=== PATIENT | female | born 1985 | race Caucasian/White ===

== ENCOUNTER 2018-06-22 16:46 | Inpatient (IN) | payer OTHER ==
[2018-06-22] MEDS ORDERED: Butorphanol Tartrate 1 MG/ML VIAL SLOW IVP PRN (17:03)
[2018-06-22] MEDS ORDERED: Ondansetron HCl/PF 4 MG/2 ML Vial IVP PRN (17:03)
[2018-06-22] MEDS ORDERED: Promethazine HCl 25 MG/ML VIAL IM PRN (17:03)
[2018-06-22] MEDS ORDERED: Docusate 100 MG CAP PO PRN (17:03)
[2018-06-22] MEDS ORDERED: Zolpidem Tartrate 5 MG TAB PO PRN (17:03)
[2018-06-22] MEDS ORDERED: Magnesium 2 GM/50 ML 2 GM in Premix Bag 1 BAG IVPB SCH (17:15)
[2018-06-22] MEDS ORDERED: Magnesium Sulfate 20 gm/500 ml 20 GM/500 ML BAG ONE (17:29)
[2018-06-22 17:38] LABS: Hemoglobin 11.2 g/dL (12.0-16.0); Mean Corpuscular HGB CONC 32.8 g/dL (32.0-36.0); Mean Corpuscular Hemoglobin 28.6 pg (27.0-31.0); Mean Corpuscular Volume 87.2 fL (78.0-98.0); Mean Platelet Volume 8.1 fL (7.4-10.4); Platelet Count 273 thou/uL (130-400); RBC Distribution Width 11.8 % (11.5-14.5); Red Blood Cell (RBC) Count 3.91 mill/uL (4.20-5.40); White Blood Cell (WBC) Count 11.9 thou/uL (4.8-10.8)
[2018-06-22 17:48] LABS: Amnisure Test RUPTURE DETECTED (No Rupture)
[2018-06-22 17:49] LABS: Amnisure Internal Control QC ACCEPTABLE (ACCEPTABLE)
[2018-06-22 17:55] VITALS: BMI 20.9
[2018-06-22] MEDS: Lactated Ringer's 1,000 ML IV SCH (18:18)
[2018-06-22] MEDS: Ampicillin 2 GM in Sodium Chloride 0.9% 100 ML IVPB SCH (18:18)
[2018-06-22 18:20] LABS: HBSAg Index 0.15 S/CO (0-0.99); Hep B Surf Ag Non-Reactive S/CO (NonReactive); Syphilis Antibody Nonreactive (Nonreactive); Syphilis Antibody Index 0.04 S/CO (<1.00 Non-Reactive)
[2018-06-22] MEDS ORDERED: hydrOXYzine Pamoate 25 mg Capsule PO SCH (18:30)
[2018-06-22] MEDS: Azithromycin 500 MG in Sodium Chloride 0.9% 250 ML 250 ML IVPB SCH (20:18)
[2018-06-23] MEDS: Ampicillin 2 GM in Sodium Chloride 0.9% 100 ML IVPB SCH ×4 (00:27→19:38)
[2018-06-23] MEDS: Magnesium Sulfate 20 gm/500 ml 20 GM/500 ML BAG IVPB PRN ×2 (03:47→13:39)
[2018-06-23] MEDS: Lactated Ringer's 1,000 ML IV SCH ×2 (04:40→19:58)
[2018-06-23] MEDS: Acetaminophen 500 MG TAB PO PRN ×2 (09:32→13:49)
[2018-06-23] MEDS ORDERED: hydrOXYzine Pamoate 25 mg Capsule PO SCH (15:00)
[2018-06-23] MEDS ORDERED: Betamet Acet/Betamet Na Ph 30 MG/5 ML VIAL IM SCH (15:45)
[2018-06-23] MEDS: Azithromycin 500 MG in Sodium Chloride 0.9% 250 ML 250 ML IVPB SCH (23:06)
[2018-06-24] MEDS: Ampicillin 2 GM in Sodium Chloride 0.9% 100 ML IVPB SCH ×5 (00:34→23:55)
[2018-06-24] MEDS: Magnesium Sulfate 20 gm/500 ml 20 GM/500 ML BAG IVPB PRN (03:16)
[2018-06-24 06:26] LABS: Band 7 % (5-11); Hemoglobin 9.3 g/dL (12.0-16.0); Lymphocytes 2 % (21-51); MDiff Complete? YES; Mean Corpuscular HGB CONC 32.4 g/dL (32.0-36.0); Mean Corpuscular Hemoglobin 28.3 pg (27.0-31.0); Mean Corpuscular Volume 87.2 fL (78.0-98.0); Mean Platelet Volume 8.2 fL (7.4-10.4); Monocytes 2 % (0-10); Neutrophil 89 % (42-75); Platelet Count 349 thou/uL (130-400); RBC Distribution Width 11.8 % (11.5-14.5); Red Blood Cell (RBC) Count 3.29 mill/uL (4.20-5.40); White Blood Cell (WBC) Count 20.2 thou/uL (4.8-10.8)
[2018-06-24] MEDS: Lactated Ringer's 1,000 ML IV SCH (12:01)
[2018-06-24] MEDS ORDERED: Bisacodyl 10 MG SUPP PR PRN (15:00)
[2018-06-24] MEDS ORDERED: Ondansetron HCl/PF 4 MG/2 ML Vial IVP PRN (15:00)
[2018-06-24] MEDS ORDERED: Lanolin Ointment 7 GM TUBE TOP PRN (15:00)
[2018-06-24] MEDS ORDERED: NS / Oxytocin 40 units/1000ml 1,000 ML IV SCH (15:00)
[2018-06-24] MEDS ORDERED: Zolpidem Tartrate 5 MG TAB PO PRN (15:00)
[2018-06-24] MEDS ORDERED: Acetaminophen/Codeine 30-300mg Tablet PO PRN ×2 (15:00)
[2018-06-24] MEDS ORDERED: Benzocaine/Menthol 20-0.5% 60 ML CAN TOP PRN (15:00)
[2018-06-24] MEDS ORDERED: diphenhydrAMINE 25 MG CAP PO PRN (15:00)
[2018-06-24] MEDS ORDERED: Preparation H Ointment 28 GM TUBE PR PRN (15:00)
[2018-06-24] MEDS ORDERED: Milk Of Magnesia 30 ML UDCUP PO PRN (15:00)
[2018-06-24] MEDS: Ferrous Sulfate 325 MG TAB PO SCH (19:11)
[2018-06-24] MEDS: Azithromycin 500 MG in Sodium Chloride 0.9% 250 ML 250 ML IVPB SCH (19:43)
[2018-06-24] MEDS ORDERED: Ibuprofen 800 MG TAB PO SCH (22:00)
[2018-06-25] MEDS: Lactated Ringer's 1,000 ML IV SCH (00:02)
[2018-06-25] MEDS: Docusate Calcium (SURFAK) 240 MG CAP PO SCH ×3 (00:03→21:50)
[2018-06-25] MEDS: Ampicillin 2 GM in Sodium Chloride 0.9% 100 ML IVPB SCH (05:34)
[2018-06-25 06:13] LABS: Mean Corpuscular HGB CONC 32.3 g/dL (32.0-36.0); Mean Corpuscular Hemoglobin 28.3 pg (27.0-31.0); Mean Corpuscular Volume 87.8 fL (78.0-98.0); Mean Platelet Volume 8.4 fL (7.4-10.4); Platelet Count 390 thou/uL (130-400); RBC Distribution Width 11.9 % (11.5-14.5); Red Blood Cell (RBC) Count 3.54 mill/uL (4.20-5.40)
[2018-06-25] MEDS ORDERED: Adacel (T-DAP) 0.5 ML VIAL IM ONE (09:00)
[2018-06-25] MEDS: Ferrous Sulfate 325 MG TAB PO SCH ×2 (09:10→21:50)
[2018-06-25] MEDS: Prenatal Vitamin 1 TAB PO SCH (09:11)
[2018-06-26] MEDS: Ferrous Sulfate 325 MG TAB PO SCH ×2 (08:15→22:40)
[2018-06-26] MEDS: Prenatal Vitamin 1 TAB PO SCH (08:15)
[2018-06-26] MEDS: Docusate Calcium (SURFAK) 240 MG CAP PO SCH ×2 (08:16→21:42)
[2018-06-26] MEDS: Lactated Ringer's 1,000 ML IV SCH ×3 (21:14→21:16)
[2018-06-26] MEDS ORDERED: Mag-Al 1200 mg/1200 mg/30 ML UDCUP PO PRN (21:34)
[2018-06-27] MEDS: hydrOXYzine Pamoate 25 mg Capsule PO PRN (18:34)
[2018-06-28] MEDS: Lactated Ringer's 1,000 ML IV SCH (02:00)
[2018-06-28] MEDS: Prenatal Vitamin 1 TAB PO SCH (12:12)
[2018-06-28] MEDS: Ferrous Sulfate 325 MG TAB PO SCH (12:12)
[2018-06-28] MEDS: Docusate Calcium (SURFAK) 240 MG CAP PO SCH (12:13)
[2018-06-29] MEDS: Docusate Calcium (SURFAK) 240 MG CAP PO SCH ×4 (06:29→21:16)
[2018-06-29] MEDS: Prenatal Vitamin 1 TAB PO SCH ×2 (09:58→10:02)
[2018-06-29] MEDS: Ferrous Sulfate 325 MG TAB PO SCH ×3 (09:58→21:16)
--- NOTE | 2018-06-29 11:48 | ULT ---
LIMITED OB ULTRASOUND: HISTORY: Premature rupture of membranes. FINDINGS: A single live intrauterine gestation is seen with measurements corresponding to an estimated gestatio nal age of 29 weeks 5 days and SARAH BETH at 09/09/18. The estimated weight measures 1371 gm or 3 poun ds and 0 ounces. measurements are as follows: BPD 7.59 cm, 30 weeks 3 days HC 28.07 cm, 30 weeks 5 days AC 24.84 cm, 29 weeks 0 days FL 5.50 cm, 29 weeks 0 days The heart rate measures 136 b.p.m. Placenta is posteriorly located without evidence of placent a previa. presentation is cephalic. The amniotic fluid index is 9.6 cm. IMPRESSION: 1. Single live intrauterine of 29 weeks 5 days and estimated date of delivery at 09/09/18. 2. Amniotic fluid index is 9.6. POS: [facility]
[2018-06-29] MEDS: Lactated Ringer's 1,000 ML IV SCH (12:40)
[2018-06-29] MEDS: hydrOXYzine Pamoate 25 mg Capsule PO PRN (12:50)
[2018-06-29] MEDS ORDERED: Magnesium Sulfate 20 gm/500 ml 20 GM/500 ML BAG ONE (14:51)
[2018-06-29 14:59] LABS: #Basophils 0.1 thou/uL (0.0-0.2); #Eosinphils 0.2 thou/uL (0.0-0.7); #Lymphocytes 2.6 thou/uL (1.20-3.40); #Monocytes 0.8 thou/uL (0.11-0.59); #Neutrophils 9.8 thou/uL (1.40-6.50); %Eosinophils 1.5 % (0.0-10.0); %Lymphocytes 19.5 % (21.0-51.0); %Monocytes 5.7 % (0.0-10.0); %Neutrophils 72.3 % (42.0-75.0); Hemoglobin 11.5 g/dL (12.0-16.0); Mean Corpuscular Hemoglobin 27.4 pg (27.0-31.0); Mean Corpuscular Volume 85.6 fL (78.0-98.0); Mean Platelet Volume 8.1 fL (7.4-10.4); Platelet Count 307 thou/uL (130-400); RBC Distribution Width 12.6 % (11.5-14.5); Red Blood Cell (RBC) Count 4.19 mill/uL (4.20-5.40); White Blood Cell (WBC) Count 13.6 thou/uL (4.8-10.8)
[2018-06-29] MEDS: Magnesium Sulfate 20 gm/500 ml 20 GM/500 ML BAG IVPB PRN (15:06)
[2018-06-29] MEDS: Ampicillin 2 GM in Sodium Chloride 0.9% 100 ML IVPB SCH ×2 (15:36→21:15)
[2018-06-29] MEDS ORDERED: DISCONTINUE ALL PREVIOUS NARCOTICS FS SCH (15:45)
[2018-06-29] MEDS ORDERED: Bupivacaine 0.5% 20 ML, fentaNYL Citrate/PF 400 MCG in Sodium Chloride 0.9% 72 ML EPIDURAL SCH (15:45)
[2018-06-29] MEDS ORDERED: Azithromycin 500 MG in Sodium Chloride 0.9% 250 ML 250 ML IVPB SCH (17:30)
[2018-06-29] MEDS ORDERED: Butorphanol Tartrate 1 MG/ML VIAL SLOW IVP PRN (20:33)
[2018-06-30] MEDS: Magnesium Sulfate 20 gm/500 ml 20 GM/500 ML BAG IVPB PRN (01:11)
[2018-06-30] MEDS: hydrOXYzine Pamoate 25 mg Capsule PO PRN (03:17)
[2018-06-30] MEDS: Ampicillin 2 GM in Sodium Chloride 0.9% 100 ML IVPB SCH ×3 (03:19→15:10)
[2018-06-30] MEDS: Lactated Ringer's 1,000 ML IV SCH ×2 (03:24→14:45)
[2018-06-30] MEDS ORDERED: Betamet Acet/Betamet Na Ph 30 MG/5 ML VIAL ONE (09:09)
[2018-06-30] MEDS ORDERED: Diphenoxylate HCl/Atropine Tablet PO PRN ×2 (09:11)
[2018-06-30] MEDS ORDERED: HYDROcodone/Acetaminophen 5/325 mg Tablet PO PRN ×2 (09:11)
[2018-06-30] MEDS ORDERED: NS / Oxytocin 40 units/1000ml 1,000 ML IV PRN (09:11)
[2018-06-30] MEDS ORDERED: Misoprostol 200 MCG TAB PR PRN (09:11)
[2018-06-30] MEDS ORDERED: Lidocaine 1% (PF) 30 ML VIAL SC PRN (09:11)
[2018-06-30] MEDS ORDERED: Betamet Acet/Betamet Na Ph 30 MG/5 ML VIAL IM SCH (09:15)
[2018-06-30] MEDS ORDERED: NS w/ Oxytocin 10 units 500 ML IV SCH (09:15)
[2018-06-30] MEDS: Ferrous Sulfate 325 MG TAB PO SCH ×2 (10:18→20:57)
[2018-06-30] MEDS: Docusate Calcium (SURFAK) 240 MG CAP PO SCH ×2 (10:19→21:14)
[2018-06-30] MEDS: Prenatal Vitamin 1 TAB PO SCH (10:19)
[2018-06-30] MEDS ORDERED: DISCONTINUE ALL PREVIOUS NARCOTICS FS SCH (13:45)
[2018-06-30] MEDS ORDERED: Bupivacaine 0.5% 20 ML, fentaNYL Citrate/PF 400 MCG in Sodium Chloride 0.9% 72 ML EPIDURAL SCH (13:45)
[2018-06-30] MEDS ORDERED: Azithromycin 500 MG in Sodium Chloride 0.9% 250 ML 250 ML IVPB SCH ×2 (14:00→17:30)
[2018-06-30] MEDS ORDERED: Fentanyl 100 MCG/2 ML VIAL ONE (14:04)
--- NOTE | 2018-06-30 14:32 | PDOC.APC ---
Antepartum Consult JILL CROCKER is a 32 year old female at [30 4/7] gestational weeks. Admitted for PPROM, received betamethasone x2, magnesium and latency antibiotics. History of delivery at 35 weeks otherwise uncomplicated . I was asked by Dr Soliz to speak with the patient regarding anticipated course for a baby born at 30 weeks. I outlined that the timing and mode of delivery is a decision that will be made by the OB service. Once the patient is taken for delivery, the resuscitation team will be present. The initial focus will be on respiratory stabilization and may include minimal assistance, CPAP or intubation with surfactant administration. I discussed that the patient will need to be admitted to the NICU in an isolette due to temperature instability associated with prematurity. We will then obtain IV access ( peripheral or umbilical) as babies are at risk for hypoglycemia. We discussed that babies born are at higher risk for feeding intolerance, infection and jaundice. I discussed that breastmilk is the best nutrition for babies and she is strongly encouraged to pump after delivery. Mother does plan to breastfeed and we discussed the availability of donor milk and mom consented to use. We discussed slowly increasing enteral feedings and the use of IVF or TPN while increasing feeding volumes. I outlined the need for a feeding tube (OG or NG) until suck/swallow/breathe reflex can be established. We discussed that depending on the size of the baby, he may need ROP or head US screening. I explained that the duration of hospital stay will be determined on the clinical course of the baby. I outlined the milestones that needed to be achieved to ensure safe discharge home. She had the opportunity to ask questions. I encouraged her to contact our service again if additional questions arise. I spent 20 minutes in consultation and coordination of care. Labs: Ante Labs Blood Type O POSITIVE 06/22/18 17:24 Hep Bs Antigen Non-Reactive S/CO (NonReactive) 06/22/18 17:24
[2018-06-30] MEDS ORDERED: Eucerin (Mineral Oil/Petrolatum,White) 30 gm Jar TOP PRN (15:35)
[2018-06-30] MEDS ORDERED: Naloxone HCl 0.4 mg/ml Vial IVP PRN ×2 (15:35)
[2018-06-30] MEDS ORDERED: Promethazine HCl 25 MG/ML VIAL IM PRN (15:35)
[2018-06-30] MEDS ORDERED: Acetaminophen 325 MG TAB PO PRN (15:35)
[2018-06-30] MEDS ORDERED: Ondansetron HCl/PF 4 MG/2 ML Vial IVP PRN ×2 (15:35→16:15)
[2018-06-30] MEDS ORDERED: ePHEDrine/0.9% NaCl/PF SYRINGE 50 mg/10 ml SLOW IVP PRN (15:35)
[2018-06-30] MEDS ORDERED: Lactated Ringer's 500 ML IV PRN (15:35)
[2018-06-30] MEDS ORDERED: diphenhydrAMINE 50 MG/ML VIAL IVP PRN (15:35)
[2018-06-30] MEDS ORDERED: Communication Order-Pharmacy FS SCH (15:45)
[2018-06-30] MEDS ORDERED: Fentanyl 100 MCG/2 ML VIAL EPIDURAL SCH (15:45)
[2018-06-30] MEDS ORDERED: fentaNYL Citrate/PF 400 MCG, Bupivacaine 0.5% 20 ML in Sodium Chloride 0.9% 72 ML EPIDURAL SCH (15:45)
[2018-06-30] MEDS ORDERED: Lanolin Ointment 7 GM TUBE TOP PRN (16:15)
[2018-06-30] MEDS ORDERED: diphenhydrAMINE 25 MG CAP PO PRN (16:15)
[2018-06-30] MEDS ORDERED: Preparation H Ointment 28 GM TUBE PR PRN (16:15)
[2018-06-30] MEDS ORDERED: Adacel (T-DAP) 0.5 ML VIAL IM ONE (16:15)
[2018-06-30] MEDS ORDERED: Acetaminophen/Codeine 30-300mg Tablet PO PRN ×4 (16:15→21:08)
[2018-06-30] MEDS ORDERED: Zolpidem Tartrate 5 MG TAB PO PRN (16:15)
[2018-06-30] MEDS ORDERED: Bisacodyl 10 MG SUPP PR PRN (16:15)
[2018-06-30] MEDS ORDERED: Benzocaine/Menthol 20-0.5% 60 ML CAN TOP PRN (16:15)
[2018-06-30] MEDS ORDERED: NS / Oxytocin 40 units/1000ml 1,000 ML IV SCH (16:15)
[2018-06-30] MEDS ORDERED: Milk Of Magnesia 30 ML UDCUP PO PRN (16:15)
[2018-06-30 16:32] LABS: Base Excess (BEa) -5.5 mEq/L (-2.0 to +3.0)
[2018-06-30 16:33] LABS: Actual Bicarbonate (HCO3v) 23 mEq/L (22-28); Analyzer IN Cardio OR; Base Excess -2.6 mEq/L (-2.0 to +3.0); pH (Cord, venous) 7.35 (7.32-7.43)
[2018-06-30] MEDS: Ibuprofen 800 MG TAB PO SCH (21:13)
[2018-07-01] MEDS: Ferrous Sulfate 325 MG TAB PO SCH ×3 (01:18→18:23)
[2018-07-01] MEDS: Ibuprofen 800 MG TAB PO SCH ×3 (05:59→22:41)
[2018-07-01 06:48] LABS: Mean Corpuscular HGB CONC 32.4 g/dL (32.0-36.0); Mean Corpuscular Hemoglobin 27.9 pg (27.0-31.0); Mean Corpuscular Volume 86.2 fL (78.0-98.0); Mean Platelet Volume 8.3 fL (7.4-10.4); Platelet Count 283 thou/uL (130-400); RBC Distribution Width 12.4 % (11.5-14.5); Red Blood Cell (RBC) Count 3.57 mill/uL (4.20-5.40); White Blood Cell (WBC) Count 23.5 thou/uL (4.8-10.8)
[2018-07-01] MEDS ORDERED: Prenatal Vitamin 1 TAB PO SCH (09:00)
[2018-07-01] MEDS: Docusate Calcium (SURFAK) 240 MG CAP PO SCH ×2 (11:10→22:41)
[2018-07-02] MEDS: Ibuprofen 800 MG TAB PO SCH (06:10)
[2018-07-02] MEDS: Ferrous Sulfate 325 MG TAB PO SCH (08:21)
[2018-07-02 10:00] VITALS: BP 136/60; TEMP 98.4
== END 2018-07-02 11:00 | disposition home or self-care (01) | DRG 775 ==
LOC: EEVIPCON 16:46 → L&D 16:46 → L&D-LIB 06-26 19:09 → L&D 06-29 14:21 → L&D-LIB 06-29 16:55 → L&D 06-29 16:56 → 3SE 06-30 20:25
PROVIDERS: ADMIT Obstetrics & Gynecology; ATTEND Obstetrics & Gynecology
PROC: 4A0HXCZ Measurement of Products of Conception, Cardiac Rate, External Approach (ICD-10-PCS; 2018-06-22)
PROC: 10E0XZZ Delivery of Products of Conception, External Approach (ICD-10-PCS; principal; 2018-06-30)
DX: O42.113 Preterm premature rupture of membranes, onset of labor more than 24 hours following rupture, third trimester (principal); O99.12 Other diseases of the blood and blood-forming organs and certain disorders involving the immune mechanism complicating childbirth; O99.344 Other mental disorders complicating childbirth; D69.6 Thrombocytopenia, unspecified; F41.9 Anxiety disorder, unspecified; Z3A.29 29 weeks gestation of pregnancy; Z37.0 Single live birth
CPT/HCPCS: 36415; 36416; 51702; 59025; 76815; 82805; 83735; 84112; 85025; 85027; 86780; 86850; 86900; 86901; 87070; 87205; 87340; 88307; J0290; J0456; J0595; J0702; J2405; J2550; J3010; J3475; J3490; J7050; Q0177